=== PATIENT | male | born 1995 | race Caucasian/White ===

== ENCOUNTER 2019-05-05 17:30 | Emergency (ER) | payer MEDICAID ==
[~2019-05-05] VITALS: Ht 167.6 cm; Wt 72.6 kg
[2019-05-05 17:32] VITALS: BP_SYST 132
[2019-05-05] MEDS ORDERED: BACITRACIN 1 GM OINT TP ONE (17:45)
[2019-05-05] MEDS ORDERED: LIDOCAINE 1% 10 MG/ML, 20 ML MDV INJ ONE (17:45)
[2019-05-05 19:03] VITALS: BP_SYST 132
== END 2019-05-05 19:03 | disposition home or self-care (01) ==
LOC: SED 17:30
DX: S61.511A Laceration without foreign body of right wrist, initial encounter (principal); R03.0 Elevated blood-pressure reading, without diagnosis of hypertension; W26.8XXA Contact with other sharp object(s), not elsewhere classified, initial encounter; Y93.89 Activity, other specified; Y92.89 Other specified places as the place of occurrence of the external cause; Y99.8 Other external cause status
CPT/HCPCS: 99283

== ENCOUNTER 2019-05-12 15:26 | Emergency (ER) | payer MEDICAID ==
[~2019-05-12] VITALS: Ht 165.1 cm; Wt 72.6 kg
[2019-05-12 15:45] VITALS: BP_SYST 112
--- NOTE | 2019-05-12 15:48 | NUR ---
Patient to ER [facility] to [facility] for evaluation. Side rails up. Report given to Lesly MCMILLAN.
--- NOTE | 2019-05-12 15:50 | NUR ---
Patient arrived via POV, AAOx4, and ambulatory with steady gait. Patient had 2 sutures applied last monday suture x2 to right wrist. No drainage, warmth, mild pink periwound. Patient here for suture removal. Will continue to follow up and monitor.
--- NOTE | 2019-05-12 15:51 | NUR ---
ER at bedside examining patient.
--- NOTE | 2019-05-12 16:00 | NUR ---
Suture removal, x2, patient tolerated well. No drainage noted. Betadine to cleanse, and dressed with gauze and tape.
[2019-05-12 16:05] VITALS: BP_SYST 112
--- NOTE | 2019-05-12 16:05 | NUR ---
Patient given written and verbal discharge instructions and verbalizes understanding. ER MD discussed with patient the results and treatment provided. Patient in stable condition. ID arm band removed. No Rx given. Patient educated on pain management and to follow up with PMD. Pain Scale 0/10. Opportunity for questions provided and answered. Medication side effect fact sheet provided.
== END 2019-05-12 16:05 | disposition home or self-care (01) ==
LOC: SED 15:26
DX: S61.511D Laceration without foreign body of right wrist, subsequent encounter (principal); W26.8XXD Contact with other sharp object(s), not elsewhere classified, subsequent encounter
CPT/HCPCS: 99281